=== PATIENT | male | born 1965 | race Caucasian/White ===

== ENCOUNTER → 2018-04-09 | Outpatient (CLI) | payer BC ==
[~2018-04-09] MED LIST: ASP81CT; CLIN300C3 PO; FRSM40T; KCL20TCR; LISI5TAB14; LSNP20T; MAGN400T6 PO; METO25TA2; METOPROLOL TARTRATE; MTP25TSR PO; NIAC1000; NIAC1TBM5; OMEP-10; SIMV40TA2; SIMV40TA2 PO; SMV20T; VIT1TABL57
== END ==
LOC: CARD 11:58
PROVIDERS: ATTEND Internal Medicine
DX: I10 Essential (primary) hypertension (principal); I25.10 Atherosclerotic heart disease of native coronary artery without angina pectoris; R07.9 Chest pain, unspecified
CPT/HCPCS: 93306

== ENCOUNTER 2019-10-06 05:34 | Outpatient (CLI) | payer BC ==
[~2019-10-06] VITALS: Ht 182 cm; Wt 120.0 kg
[2019-10-06] MEDS ORDERED: LISI2.5T PO (14:07)
[2019-10-06] MEDS ORDERED: CHOL500050 PO (14:07)
[2019-10-06] MEDS ORDERED: ASPI-586 PO (14:07)
[2019-10-06] MEDS ORDERED: MTP25TSR PO (14:07)
[2019-10-06] MEDS ORDERED: SIMV80TA21 PO (14:07)
[2019-10-06] MEDS ORDERED: NIAC500T24 PO (14:07)
[2019-10-06] MEDS ORDERED: OMEP40CA27 PO (14:10)
== END 2019-10-06 14:12 | disposition home or self-care (01) ==
LOC: PREOP 05:34
PROVIDERS: ATTEND Internal Medicine
DX: Z01.818 Encounter for other preprocedural examination (principal)

== ENCOUNTER 2020-06-01 07:05 | Observation (INO) | payer BC ==
[~2020-06-01] VITALS: Ht 182.8 cm; Wt 120.8 kg
[2020-06-01] VITALS (10 sets, daily range): BP systolic 120–151; BP diastolic 74–97
[~2020-06-01 07:05] MED LIST changes: +ASPI-586 PO; +CHOL500050 PO; +LISI2.5T PO; +NIAC500T24 PO; +OMEP40CA27 PO; +SIMV80TA21 PO
--- OUTSIDE RECORDS SUMMARY | 2020-06-01 07:10 | XMS REPORT ---
Author Author Porfirio Hussein Doctor Organization [facility] Address Unknown Phone Unavailable Care Team Providers Care Toe Laster Name Role Phone Migration, Doctor Unavailable Unavailable PROBLEMS Type Condition ICD9-CM Code MWR45-TH Code Onset Dates Condition S tatus SNOMED Code Problem Need for prophylactic vaccination and inoculation, Influen za V04.81 Active 541636639 Problem Pain in joint, lower leg 719.46 Activ e 589662066 Problem Screening examination for pulmonary tuberculosis V74.1 Active 474081910 Problem Health examination of defined subpopulation V70.5 Active 141840090 ALLERGIES No Information ENCOUNTERS Encounter Location Date Diagnosis [address] [id number] [id number] Jul, Encounter for immunization Z23 [facility] [address] [facility] [id number] [address] [place] [phone] Jul, Encounter for immunization Z 23 [facility] [address] [facility] [id number] [address] [place] [phone] February, Encounter for immunization Z 23 [facility] [address] [facility] [id number] [address] [place] [phone] Dec, Bronchitis J40 [facility] [address] [facility] [id number] [address] [place] [phone] Jul, Encounter for immunization Z 23 [facility] [address] [facility] [id number] [address] [place] [phone] Aug, Encounter for immunization Z 23 [facility] [address] [facility] [id number] [address] [place] [phone] 04 Aug, 2015 Encounter for immunization Z 23 [facility] [address] [facility] [id number] [address] [place] [phone] 14 Jan, 2015 [facility] [address] [facility] [id number] [address] [place] [phone] Jan, zzCHJONO [facility] [address] [facility] [place] [address] Jul, [facility] [address] [id number] [address] [place] [phone] Jul, [facility] [address] [id number] [address] [place] [phone] Jul, [facility] [address] [id number] [address] [place] [phone] Jul, [facility] [address] [id number] [address] [place] [phone] Jun, [facility] [address] [id number] [address] [place] [phone] Jun, [facility] [address] [id number] [address] [place] [phone] Jun, [facility] [address] [id number] [address] [place] [phone] Jun, [facility] [address] [id number] [address] [place] [phone] Jan, [facility] [address] [id number] [address] [place] [phone] Jan, [facility] [address] [id number] [address] [place] [phone] Oct, [facility] [address] [id number] [address] [place] [phone] Oct, [facility] [address] [id number] [address] [place] [phone] Aug, IMMUNIZATIONS No Known Immunizations SOCIAL HISTORY Never Assessed REASON FOR VISIT PLAN OF CARE VITAL SIGNS MEDICATIONS Unknown Medications RESULTS No Results PROCEDURES Procedure Date Ordered Result Body Site TB INTRADERMAL TEST Nov 12, 2013 INSTRUCTIONS MEDICATIONS ADMINISTERED No Known Medications MEDICAL (GENERAL) HISTORY Type Description Date Surgical History open heart surgery 2007
--- OUTSIDE RECORDS SUMMARY | 2020-06-01 07:10 | XMS REPORT | Continuity of Care Document ---
Author Organization Unknown Address Unknown Phone Unavailable Allergies Active Description Code Type Severity Reaction Onset Reported/Identified Relationship to Patient Clinical Status Yes No Known Drug Allergies [id number] Drug Allergy Unknown N/A 10/10/2019 Medications There is no data. Problems Date Dx Coded Attending Type Code Diagnosis Diagnosed By 04/23/2009 KIMBERLEE SOLIZ DO 530.81 ESOPHAGEAL REFLUX 04/23/2009 KIMBERLEE SOLIZ DO 789.03 ABDOMINAL PAIN RIGHT LOWER QUADRANT 04/23/2009 ORAL POOL APRN R 530.81 ESOPHAGEAL REFLUX 04/23/2009 ORAL POOL APRN 789.03 ABDOMINAL PAIN RIGHT LOWER QUADRANT 04/23/2009 ARMANDO CUEVAS APRN 530.81 ESOPHAGEAL REFLUX 04/23/2009 ARMANDO CUEVAS APRN 789.03 ABDOMINAL PAIN RIGHT LOWER QUADRANT 04/23/2009 ARMANDO CUEVAS APRN 530.81 ESOPHAGEAL REFLUX 04/23/2009 ARMANDO CUEVAS APRN 789.03 ABDOMINAL PAIN RIGHT LOWER QUADRANT 04/23/2009 COURTNEY GARNER MD 530.8 1 ESOPHAGEAL REFLUX 04/23/2009 COURTNEY GARNER MD 789.0 3 ABDOMINAL PAIN RIGHT LOWER QUADRANT 11/12/2013 KIMBERLEE SOLIZ DO K V74.1 TB SCREENING 11/12/2013 ORAL POOL APRN R V74.1 TB SCREENING 11/12/2013 ARMANDO CUEVAS APRN V7 4.1 TB SCREENING 11/12/2013 ARMANDO CUEVAS APRN V7 4.1 TB SCREENING 11/12/2013 COURTNEY GARNER MD V74.1 TB SCREENING 01/28/2014 ORAL POOL APRN R V70.5 EXAM - PRE-EMPLOYMENT 01/28/2014 ARMANDO CUEVAS APRN V7 0.5 EXAM - PRE-EMPLOYMENT 01/28/2014 ARMANDO CUEVAS APRN V7 0.5 EXAM - PRE-EMPLOYMENT 01/28/2014 COURTNEY GARNER MD V70.5 EXAM - PRE-EMPLOYMENT 07/15/2014 ARMANDO CUEVAS APRN 719.46 PAIN KNEE 07/15/2014 ARMANDO CUEVAS APRN T 719.46 PAIN KNEE 07/15/2014 COURTNEY GARNER MD 719.4 6 PAIN KNEE 08/18/2014 COURTNEY GARNER MD V04.8 1 FLU SHOT 04/10/2018 JATINDER GUTIÉRREZ MD Ot I10 ESSENTIAL (PRIMARY) HYPERTENSION 04/10/2018 JATINDER GUTIÉRREZ MD Ot I25. 10 ATHSCL HEART DISEASE OF [place] CORONARY 04/10/2018 JATINDER GUTIÉRREZ MD Ot R07. 9 CHEST PAIN, UNSPECIFIED 04/26/2018 JATINDER GUTIÉRREZ MD Ot I10 ESSENTIAL (PRIMARY) HYPERTENSION 04/26/2018 JATINDER GUTIÉRREZ MD Ot I25. 10 ATHSCL HEART DISEASE OF [place] CORONARY 04/26/2018 JATINDER GUTIÉRREZ MD Ot R07. 9 CHEST PAIN, UNSPECIFIED 05/16/2018 JATINDER GUTIÉRREZ MD Ot I10 ESSENTIAL (PRIMARY) HYPERTENSION 05/16/2018 JATINDER GUTIÉRREZ MD Ot I25. 10 ATHSCL HEART DISEASE OF [place] CORONARY 05/16/2018 JATINDER GUTIÉRREZ MD Ot R07. 9 CHEST PAIN, UNSPECIFIED 08/07/2018 JATINDER GUTIÉRREZ MD Ot I10 ESSENTIAL (PRIMARY) HYPERTENSION 08/07/2018 JATINDER GUTIÉRREZ MD Ot I25. 10 ATHSCL HEART DISEASE OF [place] CORONARY 08/07/2018 JATINDER GUTIÉRREZ MD Ot R07. 9 CHEST PAIN, UNSPECIFIED 08/12/2018 JATINDER GUTIÉRREZ MD Ot I10 ESSENTIAL (PRIMARY) HYPERTENSION 08/12/2018 JATINDER GUTIÉRREZ MD Ot I25. 10 ATHSCL HEART DISEASE OF [place] CORONARY 08/12/2018 JATINDER GUTIÉRREZ MD Ot R07. 9 CHEST PAIN, UNSPECIFIED 10/06/2019 JATINDER GUTIÉRREZ MD Ot Z01.818 ENCOUNTER FOR OTHER PREPROCEDURAL EXAMIN 10/07/2019 JATINDER GUTIÉRREZ MD Ot Z01.818 ENCOUNTER FOR OTHER PREPROCEDURAL EXAMIN 10/16/2019 JATINDER GUTIÉRREZ MD Ot E78. 5 HYPERLIPIDEMIA, UNSPECIFIED 10/16/2019 JATINDER GUTIÉRREZ MD Ot I87. 2 VENOUS INSUFFICIENCY (CHRONIC) (PERIPHER 10/16/2019 JATINDER GUTIÉRREZ MD Ot K63. 5 POLYP OF COLON 10/16/2019 JATINDER GUTIÉRREZ MD Ot Z12. 11 ENCOUNTER FOR SCREENING FOR MALIGNANT NE 10/16/2019 JATINDER GUTIÉRREZ MD Ot Z79.899 OTHER ALF (CURRENT) DRUG THERAPY 10/16/2019 JATINDER GUTIÉRREZ MD Ot Z82. 62 FAMILY HISTORY OF OSTEOPOROSIS 10/16/2019 JATINDER GUTIÉRREZ MD Ot Z95. 1 PRESENCE OF AORTOCORONARY BYPASS GRAFT 10/30/2019 JATINDER GUTIÉRREZ MD Ot E78. 5 HYPERLIPIDEMIA, UNSPECIFIED 10/30/2019 JATINDER GUTIÉRREZ MD Ot I25. 10 ATHSCL HEART DISEASE OF [place] CORONARY 10/30/2019 JATINDER GUTIÉRREZ MD Ot I87. 2 VENOUS INSUFFICIENCY (CHRONIC) (PERIPHER 10/30/2019 JATINDER GUTIÉRREZ MD Ot K62. 1 RECTAL POLYP 10/30/2019 JATINDER GUTIÉRREZ MD Ot M19. 90 UNSPECIFIED OSTEOARTHRITIS, UNSPECIFIED 10/30/2019 JATINDER GUTIÉRREZ MD Ot Z12. 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 61 FAMILY HISTORY OF ARTHRITIS 10/30/2019 JATINDER GUTIÉRREZ MD Ot Z87.891 PERSONAL HISTORY OF NICOTINE DEPENDENCE 10/30/2019 JATINDER GUTIÉRREZ MD Ot Z95. 1 PRESENCE OF AORTOCORONARY BYPASS GRAFT Procedures Code [place] [address] TB T EST INTRADERMAL 11/12/2013 88337 XRAY KNEE LEFT, 1 OR 2 VIEWS 07/15/2014 39304 XRAY KNEE LEFT, 1 OR 2 VIEWS 07/17/2014 Results There is no data. Encounters ACCT No. Visit Date/Time Discharge Status Pt. Type Provider Facility Loc./Unit Complaint [id number] 08/18/2014 13:23:00 08/18/2014 23:59: 59 CLS Outpatient PATSY ADAMS, COURTNEY Jaramillo [id number] 07/17/2014 16:12:00 07/17/2014 23:59: 59 CLS Outpatient ARMANDO CUEVAS APRN [id number] 07/15/2014 16:59:00 07/15/2014 23:59: 59 CLS Outpatient ARMANDO CUEVAS APRN [id number] 01/28/2014 08:26:00 01/28/2014 23:59: 59 CLS Outpatient ORAL POOL APRN [id number] 11/12/2013 07:54:00 11/12/2013 23:59: 59 CLS Outpatient KIMBERLEE SOLIZ DO [id number] 10/10/2019 07:54:00 019 10:50:00 DIS Outpatient JATINDER GUTIÉRREZ MD [facility] ENDO SCREENING [id number] 10/06/2019 05:34:00 14:12:00 DIS Outpatient JATINDER GUTIÉRREZ MD [facility] PREOP COLONOSCOPY [id number] 04/09/2018 11:58:00 23:59:59 CLS Outpatient JATINDER GUTIÉRREZ MD [facility] CARD HTN,CHEST PAIN [id number] 06/01/2020 07:06:[address] Emergency GRACIE ZAVALA MD [facility] ER CHEST PAIN [id number] 04/24/2020 07:55:00 04/24/2020 23:59:5 9 CLS Outpatient [facility]
--- OUTSIDE RECORDS SUMMARY | 2020-06-01 07:10 | XMS REPORT ---
Author Author Porfirio Dobbs Organization [facility] Address [address] [place] [address] Care Team Providers Care Coater Operator Insulation Board Name Role Phone ORAL Dobbs Unavailable PROBLEMS Type Condition ICD9-CM Code IOV29-AG Code Onset Dates Condition S tatus SNOMED Code Problem Need for prophylactic vaccination and inoculation, Influen za V04.81 Active 133173516 Problem Pain in joint, lower leg 719.46 Activ e 644838089 Problem Screening examination for pulmonary tuberculosis V74.1 Active 038313463 Problem Health examination of defined subpopulation V70.5 Active 417723689 ALLERGIES No Information ENCOUNTERS Encounter Location Date Diagnosis [address] [id number] [id number] Jul, Encounter for immunization 23 [facility] [id number] [place] [address] Jul, Encounter for immunization Z23 [facility] [address] [facility] [id number] [address] [place] [phone] February, Encounter for immunization Z 23 [facility] IN [facility] [address] [facility] [id number] [address] [place] [phone] Dec, Bronchitis J40 [facility] [address] [facility] [place] [address] Jul, Encounter for immunization 23 [facility] [id number] [place] [address] Aug, Encounter for immunization Z23 [facility] [address] [phone] 04 Aug, 2015 Encounter for immunization 23 [facility] [address] [address] Jan, [facility] [id number] [place] [address] Jan, Gil KO[facility] [address] [facility] [place] [address] Jul, [facility] [id number] [place] [address] Jul, [facility] [id number] [place] [address] Jul, [facility] [id number] [place] [address] Jul, [facility] [address] [phone] Jun, [facility] [id number] [place] [address] Jun, [facility] [id number] [place] [address] Jun, [facility] [id number] [place] [address] Jun, [facility] [id number] [place] [address] Jan, [facility] [id number] [place] [address] Jan, [facility] [id number] [place] [address] Oct, [facility] [id number] [place] [address] Oct, [facility] [id number] [place] [address] Aug, IMMUNIZATIONS No Known Immunizations SOCIAL HISTORY Never Assessed REASON FOR VISIT PLAN OF CARE VITAL SIGNS Height 72 in 2014-01-28 Weight 248.31 lbs 2014-01-28 Temperature 97.4 degrees Fahrenheit 2014-01-28 Heart Rate 74 bpm 2014-01-28 Respiratory Rate 18 2014-01-28 Blood pressure systolic 126 mmHg 2014-01-28 Blood pressure diastolic 76 mmHg 2014-01-28 MEDICATIONS Unknown Medications RESULTS No Results PROCEDURES No Known procedures INSTRUCTIONS MEDICATIONS ADMINISTERED No Known Medications MEDICAL (GENERAL) HISTORY Type Description Date Surgical History open heart surgery 2007
[2020-06-01] MEDS ORDERED: NITROGLYCERIN 0.4 MG SL TABS BTL 25'S SL ONE (07:14)
[2020-06-01] MEDS ORDERED: ASPIRIN 81 MG CHEW (CHILDREN'S ASA) ONE (07:15)
--- NOTE | 2020-06-01 07:16 | ED Chest Pain ---
General Stated Complaint: CHEST PAIN Source: patient Exam Limitations: no limitations History of Present Illness Date Seen by Provider: Jun 01, 2020 Time Seen by Provider: 07:09 Initial Comments Them patient arrives the ER by private conveyance with chief complaint that about 6:00, one hour prior to arrival he began to experience pain in his left chest occasionally radiating towards his right chest. He rates the pain early as severe, sharp and now about a 3 out of 10 while at rest. He is not having any nausea sweats fever chills cough. 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 He is followed by Dr. Phil Ruiz. He had a colonoscopy in the last 6 months that was normal. His had no other abdominal or chest surgeries. He has not taken any nitroglycerin this morning because he started feeling a little dizzy and lightheaded like he might pass out. No palpitations or racing heart rate. He is not on blood thinners. He does take aspirin daily but has not taken it this morning. He quit smoking 2007. He only rarely drinks and does not use recreational drugs. He has high blood pressure an d hyperlipidemia without diabetes. Echocardiogram by Dr. Villarreal 2008: EF 55% with some mild mitral and tricuspid regurgitation. No cardiac catheterization since 2007. Allergies and Home Medications Allergies Coded Allergies: No Known Drug Allergies (Verified , 10/10/19) Home Medications Aspirin 81 Mg Tablet., 81 MG PO DAILY, (Reported) Cholecalciferol (Vitamin D3) 5,000 Unit Capsule, 5,000 UNIT PO DAILY, (Reported) Lisinopril 2.5 Mg Tablet, 2.5 MG PO DAILY, (Reported) Metoprolol Succinate 25 Mg Tab.er.24h, 25 MG PO BID, (Reported) Niacinamide 500 Mg Tablet, 500 MG PO DAILY, (Reported) Omeprazole 40 Mg Capsule.dr, 40 MG PO DAILY PRN for HEARTBURN, (Reported) Simvastatin 80 Mg Tablet, 40 MG PO DAILY, (Reported) Patient Home Medication List Home Medication List Reviewed: Yes Review of Systems Review of Systems Constitutional: No chills, No diaphoresis EENTM: No Blurred Vision, No Double Vision Respiratory: Denies Cough, Denies Shortness of Air Cardiovascular: Chest Pain; Denies Edema Gastrointestinal: Denies Constipated, Denies Diarrhea, Denies Nausea Genitourinary: Denies Burning, Denies Discharge Musculoskeletal: No back pain, No joint pain Skin: No pruritus, No rash Psychiatric/Neurological: Denies Headache, Denies Numbness All Other Systems Reviewed Negative Unless Noted: Yes Past Mjlfman-Rkwtes-Lyvqwr Hx Patient Social History Alcohol Use: Rarely Uses Recreational Drug Use: No Smoking Status: Former Smoker Former Smoker, Quit: Oct 06, 2008 2nd Hand Smoke Exposure: Yes Recent Foreign Travel: No Contact w/Someone Who Travel: No Recent Hopitalizations: Yes (FEBRUARY 2019-) Immunizations Up To Date Date of Influenza Vaccine: Aug 04, 2019 Seasonal Allergies Seasonal Allergies: No Past Medical History Surgeries: Yes (LEFT FINGERS, BYPASS) Respiratory: No Cardiac: Yes (CABG March 2008) Coronary Artery Disease, High Cholesterol, Hypertension Neurological: No Reproductive Disorders: No Sexually Transmitted Disease: No HIV/AIDS: No Genitourinary: No Gastrointestinal: Yes Gastroesophageal Reflux Musculoskeletal: Yes Arthritis Endocrine: No HEENT: Yes (DENTURES) Loss of Vision: Denies Hearing Impairment: Denies Psychosocial: No Integumentary: No Blood Disorders: No Adverse Reaction/Blood Tranf: No (N/A) Physical Exam Vital Signs Vital Signs - First Documented 06/01/20 07:07 Temp 36.9 Pulse 72 Resp 18 B/P (MAP) 168/92 (117) Pulse Ox 97 O2 Delivery Room Air Capillary Refill : Height, Weight, BMI Height: '" Weight: lbs. oz. kg; 33.92 BMI Method:Stated General Appearance: WD/WN, Anxious, Mild Distress HEENT: PERRL/EOMI, Pharynx Normal, Moist Mucous Membranes Neck: Normal Inspection, Non Tender Respiratory: Chest Non Tender, Lungs Clear, Normal Breath Sounds, No Accessory Muscle Use, No Respiratory Distress Cardiovascular: Regular Rate, Rhythm, No Edema, Normal Peripheral Pulses Gastrointestinal: Normal Bowel Sounds, Non Tender, Soft Extremity: Normal Capillary Refill, Normal Inspection, No Pedal Edema Neurologic/Psychiatric: Alert, Oriented x3, No Motor/Sensory Deficits Skin: Normal Color, Warm/Dry Progress/Results/Core Measures Results/Orders Lab Results Laboratory Tests Test 06/01/20 07:15 Range/Units White Blood Count 5.4 4.3-11.0 10^3/uL Red Blood Count 4.77 4.35-5.85 10^6/uL Hemoglobin 13.9 13.3-17.7 G/DL Hematocrit 42 40-54 % Mean Corpuscular Volume 87 80-99 FL Mean Corpuscular Hemoglobin 29 25-34 PG Mean Corpuscular Hemoglobin Concent 33 32-36 G/DL Red Cell Distribution Width 13.2 10.0-14.5 % Platelet Count 186 130-400 10^3/uL Mean Platelet Volume 9.7 7.4-10.4 FL Neutrophils (%) (Auto) 55 42-75 % Lymphocytes (%) (Auto) 34 12-44 % Monocytes (%) (Auto) 9 0-12 % Eosinophils (%) (Auto) 2 0-10 % Basophils (%) (Auto) 0 0-10 % Neutrophils # (Auto) 3.0 1.8-7.8 X 10^3 Lymphocytes # (Auto) 1.8 1.0-4.0 X 10^3 Monocytes # (Auto) 0.5 0.0-1.0 X 10^3 Eosinophils # (Auto) 0.1 0.0-0.3 10^3/uL Basophils # (Auto) 0.0 0.0-0.1 10^3/uL Prothrombin Time 12.8 12.2-14.7 SEC INR Comment 0.9 0.8-1.4 Activated Partial Thromboplast Time 27 24-35 SEC Sodium Level 140 135-145 MMOL/L Potassium Level 4.0 3.6-5.0 MMOL/L Chloride Level 108 H 98-107 MMOL/L Carbon Dioxide Level 22 21-32 MMOL/L Anion Gap 10 5-14 MMOL/L Blood Urea Nitrogen 17 7-18 MG/DL Creatinine 0.86 0.60-1.30 MG/DL Estimat Glomerular Filtration Rate > 60 BUN/Creatinine Ratio 20 Glucose Level 112 H 70-105 MG/DL Calcium Level 9.1 8.5-10.1 MG/DL Corrected Calcium 9.0 8.5-10.1 MG/DL Magnesium Level 1.8 1.6-2.4 MG/DL Total Bilirubin 0.7 0.1-1.0 MG/DL Aspartate Amino Transf (AST/SGOT) 22 5-34 U/L Alanine Aminotransferase (ALT/SGPT) 22 0-55 U/L Alkaline Phosphatase 114 40-136 U/L Myoglobin 64.6 10.0-92.0 NG/ML Troponin I < 0.028 <0.028 NG/ML Total Protein 7.1 6.4-8.2 GM/DL Albumin 4.1 3.2-4.5 GM/DL Lipase 17 8-78 U/L My Orders Orders - GRACIE ZAVALA Cbc With Automated Diff (06/01/20 07:16) Magnesium (06/01/20 07:16) Chest 1 View, Ap/Pa Only (06/01/20 07:16) Ekg Tracing (06/01/20 07:16) Comprehensive Metabolic Panel (06/01/20 07:16) Myoglobin Serum (06/01/20 07:16) Protime With Inr (06/01/20 07:16) Partial Thromboplastin Time (06/01/20 07:16) O2 (06/01/20 07:16) Monitor-Rhythm Ecg Trace Only (06/01/20 07:16) Lipid Panel (06/02/20 06:00) Ed Iv/Invasive Line Start (06/01/20 07:16) Lipase (06/01/20 07:16) Troponin I (06/01/20 07:16) Nitroglycerin 0.4 Mg Btl 25's (Nitrostat (06/01/20 07:30) Aspirin Chewable Tablet (Baby Aspirin Ch (06/01/20 07:30) Nitroglycerin 0.4 Mg Btl 25's (Nitrostat (06/01/20 07:14) Aspirin Chewable Tablet (Baby Aspirin Ch (06/01/20 07:15) Metoprolol Succinate (Xl) Tab (Toprol Xl (06/01/20 08:00) Clopidogrel Tablet (Plavix Tablet) (06/01/20 08:00) Medications Given in ED Current Medications Medications Dose Ordered Sig/Eveline Route Start Time Stop Time Status Last Admin Dose Admin Aspirin 324 mg ONCE ONCE PO 06/01/20 07:30 06/01/20 07:31 DC 06/01/20 07:19 324 MG Nitroglycerin 0.4 mg UD PRN SL 06/01/20 07:30 06/01/20 07:21 0.4 MG Vital Signs/I&O 06/01/20 06/01/20 07:07 07:43 Temp 36.9 Pulse 72 62 Resp 18 18 B/P (MAP) 168/92 (117) 120/74 (89) Pulse Ox 97 96 O2 Delivery Room Air Room Air Progress Progress Note #1: Time: 07:25 Progress Note We will give him 324 mg of aspirin to chew and swallow as well as trial a dose of nitroglycerin. His blood pressure is significant at this point and he has no evidence of an inferior ST changes on EKG. Progress Note #2: Time: 07:39 Progress Note After single dose of nitroglycerin the patient is not having any chest pain or symptoms of this time. If he had a normal troponin his heart score would still be 5 points. We have discussed observation stay and he is in agreement with this plan. Initial ECG Impression Date: Jun 01, 2020 Initial ECG Impression Time: 07:12 Initial ECG Rate: 71 Initial ECG Rhythm: Normal Sinus Initial ECG Intervals: Normal Initial ECG Impression: Normal Initial ECG Comparisson: Unchanged Comment Normal sinus rhythm without clinically relevant ST changes. Diagnostic Imaging Diagonstic Imaging: Xray Plain Films/CT/US/NM/MRI: chest Comments No acute cardiopulmonary process on one view chest x-ray. [facility] [place] [place] NAME: [facility] REC#: [id number] PT STATUS: REG ER : 1965 PHYSICIAN: GRACIE ZAVALA MD ADMIT DATE: 06/01/20/ER Draft Date of Exam:06/01/20 CHEST 1 VIEW, AP/PA ONLY INDICATION: Chest pain, sudden onset this morning. TECHNIQUE: Single view chest 7:29 AM. CORRELATION STUDY: 11/03/2011 FINDINGS: Poststernotomy changes. Heart size enlarged. Vasculature overall within normal limits. No definitive infiltrate. Lung hawk slightly hyperinflated. IMPRESSION: 1. Negative for acute abnormality of the chest. Post sternotomy changes with borderline cardiac enlargement. Dictated on workstation # [id number] Dict: 06/01/20 0741 Trans: 06/01/20 [id number] Interpreted by: CAMILA ACKERMAN DO Electronically signed by: Reviewed: Reviewed by Me Consults : Consulting Physician: BENOIT VILLARREAL MD FACP FACC CCDS Departure Communication (Admissions) Time/Spoke to Admitting Phy: 07:55 Discussed the case with Dr. Olson and he agrees to observe the patient in the cardiac stepdown with consultation to cardiology. Time/Spoke to Consulting Phy: 07:50 Discussed the case with Dr. Villarreal, cardiology and he agrees to consult on the patient. He would like the patient kept nothing by mouth until he sees them. He would like 25 mg metoprolol succinate now and daily as well as Plavix 300 mg now and then 75 mg daily. Impression Primary Impression: Unstable angina Disposition: ADMITTED INPATIENT Condition: Stable Admissions Decision to Admit Reason: Admit from ER (General) Decision to Admit/Date: Jun 01, 2020 Time/Decision to Admit Time: 07:45 Departure-Patient Inst. Referrals: JATINDER RUIZ MD (PCP/Family) Primary Care Physician GRACIE ZAVALA Jun 01, 2020 07:16
[2020-06-01 07:25] LABS: BASOPHILS % (AUTO) 0 % (0-10); EOSINOPHILS # (AUTO) 0.1 10^3/uL (0.0-0.3); EOSINOPHILS % (AUTO) 2 % (0-10); HEMATOCRIT 42 % (40-54); HEMOGLOBIN 13.9 G/DL (13.3-17.7); LYMPHOCYTES # (AUTO) 1.8 X 10^3 (1.0-4.0); LYMPHOCYTES % (AUTO) 34 % (12-44); MEAN CORPUSCULAR HEMOGLOBIN 29 PG (25-34); MEAN CORPUSCULAR HGB CONC 33 G/DL (32-36); MEAN CORPUSCULAR VOLUME 87 FL (80-99); MEAN PLATELET VOLUME 9.7 FL (7.4-10.4); MONOCYTES # (AUTO) 0.5 X 10^3 (0.0-1.0); MONOCYTES % (AUTO) 9 % (0-12); NEUTROPHILS % (AUTO) 55 % (42-75); PLATELET COUNT 186 10^3/uL (130-400); RED CELL DISTRIBUTION WIDTH 13.2 % (10.0-14.5); WHITE BLOOD COUNT 5.4 10^3/uL (4.3-11.0)
[2020-06-01] MEDS ORDERED: ASPIRIN 81 MG CHEW (CHILDREN'S ASA) PO ONE (07:30)
[2020-06-01] MEDS ORDERED: NITROGLYCERIN 0.4 MG SL TABS BTL 25'S SL PRN ×2 (07:30→09:15)
[2020-06-01 07:32] LABS: INR 0.9 (0.8-1.4); PROTHROMBIN TIME PATIENT 12.8 SEC (12.2-14.7)
--- NOTE | 2020-06-01 07:34 | NUR ---
TO ROOM PATIENT REPORTS THAT PAIN GONE TALKING ON PHONE TO .
[2020-06-01 07:41] LABS: ALANINE AMINOTRANSFERASE 22 U/L (0-55); ALBUMIN 4.1 GM/DL (3.2-4.5); ALKALINE PHOSPHATASE 114 U/L (40-136); BILIRUBIN,TOTAL 0.7 MG/DL (0.1-1.0); BUN/CREATININE RATIO 20; CALCIUM 9.1 MG/DL (8.5-10.1); CARBON DIOXIDE 22 MMOL/L (21-32); CHLORIDE 108 MMOL/L (98-107); CREATININE SERUM 0.86 MG/DL (0.60-1.30); GFR ESTIMATED > 60; GLUCOSE 112 MG/DL (70-105); LIPASE 17 U/L (8-78); MAGNESIUM 1.8 MG/DL (1.6-2.4); SODIUM 140 MMOL/L (135-145); TOTAL PROTEIN 7.1 GM/DL (6.4-8.2)
--- NOTE | 2020-06-01 07:45 | Diagnostic Imaging Report ---
INDICATION: Chest pain, sudden onset this morning. TECHNIQUE: Single view chest 7:29 AM. CORRELATION STUDY: 11/03/2011 FINDINGS: Poststernotomy changes. Heart size enlarged. Vasculature overall within normal limits. No definitive infiltrate. Lung hawk slightly hyperinflated. IMPRESSION: 1. Negative for acute abnormality of the chest. Post sternotomy changes with borderline cardiac enlargement. Dictated by: Dictated on workstation # [id number]
[2020-06-01] MEDS ORDERED: CLOPIDOGREL 300 MG (PLAVIX) TABLET PO ONE (08:00)
--- NOTE | 2020-06-01 08:36 | NUR ---
VINICIO WYMAN JR admitted to room CU10-1, with an admitting diagnosis of Chest pain, on 06/01/20 from [place] via wheelchair, accompanied by staff.VINICIO WYMAN JR introduced to surroundings, call light, bed controls, phone, TV, temperature control, lights, meal times, smoking policy, visitor policy, side rail policy, bathrooms and showers. Patient Rights given to patient in the handbook. VINICIO WYMAN JR verbalizes understanding that [facility] is not responsible for the loss or damage to any personal effects or valuables that are kept in the patients posession during their hospitalization. The following Patient Care Plans were discussed with the pt: Discharge Planning. VINICIO WYMAN JR verbalizes understanding of Interdisciplinary Patient Education. Patient and/or family were informed about the Rapid Response Team and its purpose.
[2020-06-01] MEDS ORDERED: ONDANSETRON 4 MG/2 ML (SDV) Z0FRAN IVP PRN (09:15)
[2020-06-01] MEDS ORDERED: morphine INJ 4 MG/ML 1 ML (VIAL/SYRINGE) IV PRN ×2 (09:15→09:45)
[2020-06-01] MEDS ORDERED: CATHETER FLUSH 10 ML SYR IV PRN (09:30)
[2020-06-01] MEDS ORDERED: ACETAMINOPHEN 500 MG TAB (TYLENOL) PO PRN (09:30)
[2020-06-01] MEDS ORDERED: ANTACID SUSP 30 ML UDC (MYLANTA) PO PRN (09:30)
[2020-06-01] MEDS ORDERED: ASPI-983 PO (10:22)
[2020-06-01] MEDS ORDERED: ATOR80TA76 PO (10:22)
[2020-06-01] MEDS ORDERED: METO-333 PO (10:22)
[2020-06-01] MEDS ORDERED: CHOL100045 PO (10:22)
[2020-06-01] MEDS ORDERED: OMEP20TA7 PO (10:22)
--- NOTE | 2020-06-01 10:56 | NUR ---
SPOKE WITH THE PT AND WENT THRU THE EXT MED HISTORY TO COMPLETE THE MED REC PT WAS ABLE TO LIST HIS MEDS WELL WHEN/HOW HE TAKES THEM- HIS INFORMATION MATCHED THE EXT MED HISTORY OTC MEDS: VIT D 1 BID OMEPRAZOLE PRN ASPIRIN 81 1 HS NIACIN 2 HS
--- NOTE | 2020-06-01 11:14 | Consultation-Cardiology ---
HPI-Cardiology Cardiology Consultation: Date of Consultation 06/01/20 Time Seen by a Provider: 10:30 Date of Admission 06-01-2020 Attending Physician Kaley Olson MD Admitting Physician Sunil Ruiz MD Consulting Physician Samantha Villarreal MD HPI: Chief Complaint: Chest pain Mr. Bradford is a 55 year old male admitted to ICU 10 from the ED. He reports he woke up this morning and was getting ready for work. He states he felt, weak, dizzy and disoriented. He reports he then began to have left sided chest pressure with occ radiation across his chest. He reports the discomfort jasen ined constant. He states he would sit down and the dizziness would improve, but as soon as he would get up to do any activity the dizziness and weakness would return. He denies any diaphoresis. He denies any palpitations. He states the the discomfort lasted until he received one nitro sublingual and ASA in the ED. The discomfort gradually resolved along with the dizziness and weakness. He has had no further episodes. He denies any LE swelling. He denies any syncope or near syncope. He denies any fever or chills. Review of Systems-Cardiology Review of Systems Constitutional: No chills, No fever; malaise Eyes: No vision change Ears/Nose/Throat: No epistaxis, No recent hearing loss Respiratory: As described under HPI Cardiovascular: As described under HPI Gastrointestinal: No constipation, No diarrhea; nausea; No vomiting Genitourinary: No dysuria, No hematuria Musculoskeletal: no symptoms reported Skin: No rash on exposed areas, No ulcerations on exposed areas Psychiatric/Neurological: No anxiety, No depression, No seizure, No focal weakness, No syncope Hematologic: No bleeding abnormalities All Other Systems Reviewed Negative Unless Noted: Yes NSS-Cwqlvq-Mxiogh Hx Patient Social History Alcohol Use: Rarely Uses Recreational Drug Use: No Smoking Status: Former Smoker 2nd Hand Smoke Exposure: Yes Recent Foreign Travel: No Recent Infectious Disease Expo: No Hospitalization with Isolation: Denies Immunizations Up To Date Date of Influenza Vaccine: Aug 04, 2019 Past Medical History PMH As described under Assessment. Family Medical History Family Medical History: No reported family h/o CAD. Allergies and Home Medications Allergies Coded Allergies: No Known Drug Allergies (Verified , 10/10/19) Home Medications Aspirin 81 Mg Tablet.dr, 81 MG PO HS, (Reported) Atorvastatin Calcium 80 Mg Tablet, 80 MG PO HS, (Reported) Cholecalciferol (Vitamin D3) 25 Mcg Tablet, 25 MCG PO BID, (Reported) Lisinopril 2.5 Mg Tablet, 2.5 MG PO DAILY, (Reported) Metoprolol Tartrate 25 Mg Tablet, 25 MG PO BID, (Reported) Niacinamide 500 Mg Tablet, 1,000 MG PO HS, (Reported) TAKES 2 (500MG) TABS Omeprazole 20 Mg Tablet.dr, 20 MG PO DAILY PRN for HEARTBURN, (Reported) Patient Home Medication List Home Medication List Reviewed: Yes Physical Exam-Cardiology Physical Exam Vital Signs/I&O 06/02/20 06/02/20 06/02/20 06/02/20 00:05 00:05 01:00 04:35 Temp 36.5 Pulse 70 60 Resp 18 B/P (MAP) 126/70 (88) Pulse Ox 95 96 95 O2 Delivery Room Air Room Air Room Air 06/02/20 04:35 Temp 36.8 Pulse 62 Resp 16 B/P (MAP) 132/78 (96) Pulse Ox 95 O2 Delivery Room Air 06/02/20 00:00 Intake Total 945 ml Output Total 950 ml Balance -5 ml Capillary Refill : Less Than 3 Seconds Constitutional: AAO x 3, well-developed, well-nourished HEENT: PERRL, hearing is well preserved Neck: No carotid bruit; carotid pulses are 2 + bilaterally Respiratory: No accessory muscle use, No respiratory distress; chest expansion is symmetric, chest is bilaterally symmetric, lungs clear to auscultation Cardiovascular: regular rate-rhythm; No JVD; S1 and S2 Gastrointestinal: No tender; soft, round, audible bowel sounds Extremities: no lower extremity edema bilateral Neurologic/Psychiatric: grossly intact (moves all extremities) Skin: No rash on exposed areas, No ulcerations on exposed areas Data Review Labs Laboratory Tests 06/01/20 11:58: Troponin I < 0.028 06/01/20 19:00: Troponin I < 0.028 06/02/20 03:55: White Blood Count 5.8, Red Blood Count 4.77, Hemoglobin 14.0, Hematocrit 42, Mean Corpuscular Volume 87, Mean Corpuscular Hemoglobin 29, Mean Corpuscular Hemoglobin Concent 34, Red Cell Distribution Width 13.5, Platelet Count 183, Mean Platelet Volume 9.7, Neutrophils (%) (Auto) 52, Lymphocytes (%) (Auto) 34, Monocytes (%) (Auto) 11, Eosinophils (%) (Auto) 3, Basophils (%) (Auto) 0, Neutrophils # (Auto) 3.1, Lymphocytes # (Auto) 2.0, Monocytes # (Auto) 0.6, Eosinophils # (Auto) 0.2, Basophils # (Auto) 0.0, Sodium Level 141, Potassium Level 4.3, Chloride Level 108H, Carbon Dioxide Level 20L, Anion Gap 13, Blood Urea Nitrogen 15, Creatinine 0.83, Estimat Glomerular Filtration Rate > 60, BUN/Creatinine Ratio 18, Glucose Level 104, Calcium Level 9.1, Corrected Calcium 9.3, Total Bilirubin 0.7, Aspartate Amino Transf (AST/SGOT) 21, Alanine Aminotransferase (ALT/SGPT) 20, Alkaline Phosphatase 94, Total Protein 6.5, Albumin 3.7, Triglycerides Level 105, Cholesterol Level 122, LDL Cholesterol Di rect 86, VLDL Cholesterol 21, HDL Cholesterol 22L Radiology NAME: GAROVINICIO [facility] REC#: [id number] PT STATUS: ADM Maria Del Rosario : 1965 PHYSICIAN: GRACIE ZAVALA MD ADMIT DATE: 06/01/20/ICU Signed Date of Exam:06/01/20 CHEST 1 VIEW, AP/PA ONLY INDICATION: Chest pain, sudden onset this morning. TECHNIQUE: Single view chest 7:29 AM. CORRELATION STUDY: 11/03/2011 FINDINGS: Poststernotomy changes. Heart size enlarged. Vasculature overall within normal limits. No definitive infiltrate. Lung hawk slightly hyperinflated. IMPRESSION: 1. Negative for acute abnormality of the chest. Post sternotomy changes with borderline cardiac enlargement. Dictated by: Dictated on workstation # [id number] Dict: 06/01/20 0741 Trans: 06/01/20 1050 [id number] Interpreted by: CAMILA ACKERMAN DO Electronically signed by: CAMILA ACKERMAN DO 06/01/20 1050 ECG Impression ECG Initial ECG Rhythm: Normal Sinus A/P-Cardiology Assessment/Admission Diagnosis Chest pain of undetermined etiology Coronary artery disease with a history of coronary artery bypass surgery in March [address] Marcos at [facility] in [place], [place]. Last catheterization was in August 2008 and it showed widely patent graft, including left internal mammary to first diagonal, radial artery to distal left anterior descending, saphenous vein to first obtuse marginal, saphenous vein to right coronary. There was approximately 50% stenosis at the site of insertion of the vein graft to the right coronary artery. Last myocardial perfusion imaging was by Dr. Emanuel on 01/12/10. The patient has small basal inferior infarction without ischemia, basal inferior hypokinesis,and left ventricular ejection fraction of 51%. Ischemic cardiomyopathy. Ejection fraction prior to coronary artery bypass surgery was 35 to 40%. Echocardiogram of March [address] Ruiz showed LVEF 50-55%. Mild to mod diastolic dysfunction. Mild MR. Mild to mod TR. PASP 30-35mmHg. Mild bilateral leg swelling, likely related to venous insufficiency, currently stable Hyperlipidemia being treated with statins and Niacin and being followed by Dr. Ruiz. Tobaccoism from which he is now refraining. Discussion and Recomendations Chest pain of undetermined etiology Echocardiogram to eval structure and function Continue ASA, statin and BB Monitor lab Further recs will be based on his hospital course We would like to thank medical services for this consult Clinical Quality Measures DVT/VTE Risk/Contraindication: Risk Factor Score Per Nursin RFS Level Per Nursing on Admit: 3=High NEIL WU Jun 01, 2020 11:14
[2020-06-01] MEDS ORDERED: REGADENOSON 0.4 MG/5 ML SYR (LEXISCAN) IV ONE (12:15)
--- NOTE | 2020-06-01 12:16 | Consultation-Cardiology ---
HPI-Cardiology Cardiology Consultation: Date of Consultation 06/01/20 Time Seen by a Provider: 11:55 Date of Admission Attending Physician Kaley Olson MD Admitting Physician Sunil Ruiz MD Consulting Physician BENOIT SANCHEZ MD, MA, FACP, FACC, FSCAI, CCDS HPI: Chief Complaint: CC: Chest pain HPI Mr. Bradford is a 55 year old male admitted to ICU 10 from the ED. He reports he woke up this morning and was getting ready for work. He states he felt, weak, dizzy and disoriented. He reports he then began to have left sided chest pressure with occ radiation across his chest. He reports the discomfort remained constant. He states he would sit down and the dizziness would improve, but as soon as he would get up to do any activity the dizziness and weakness would return. He denies any diaphoresis. He denies any palpitations. He states the the discomfort lasted until he received one nitro sublingual and ASA in the ED. The discomfort gradually resolved along with the dizziness and weakness. He has had no further episodes. He denies any LE swelling. He denies any syncope or near syncope. He denies any fever or chills. Review of Systems-Cardiology Review of Systems Constitutional: No chills, No fever; malaise Eyes: No vision change Ears/Nose/Throat: No epistaxis, No recent hearing loss Respiratory: As described under HPI Cardiovascular: As described under HPI Gastrointestinal: No constipation, No diarrhea; nausea; No vomiting Genitourinary: No dysuria, No hematuria Musculoskeletal: no symptoms reported Skin: No rash on exposed areas, No ulcerations on exposed areas Psychiatric/Neurological: No anxiety, No depression, No seizure, No focal weakness, No syncope Hematologic: No bleeding abnormalities All Other Systems Reviewed Negative Unless Noted: Yes FDI-Xqvpwr-Aolkil Hx Patient Social History Alcohol Use: Rarely Uses Recreational Drug Use: No Smoking Status: Former Smoker 2nd Hand Smoke Exposure: Yes Recent Foreign Travel: No Recent Infectious Disease Expo: No Hospitalization with Isolation: Denies Immunizations Up To Date Date of Influenza Vaccine: Aug 04, 2019 Past Medical History PMH As described under Assessment. Family Medical History Family Medical History: No reported family h/o CAD. Allergies and Home Medications Allergies Coded Allergies: No Known Drug Allergies (Verified , 10/10/19) Home Medications Aspirin 81 Mg Tablet.dr, 81 MG PO HS, (Reported) Atorvastatin Calcium 80 Mg Tablet, 80 MG PO HS, (Reported) Cholecalciferol (Vitamin D3) 25 Mcg Tablet, 25 MCG PO BID, (Reported) Lisinopril 2.5 Mg Tablet, 2.5 MG PO DAILY, (Reported) Metoprolol Tartrate 25 Mg Tablet, 25 MG PO BID, (Reported) Niacinamide 500 Mg Tablet, 1,000 MG PO HS, (Reported) TAKES 2 (500MG) TABS Omeprazole 20 Mg Tablet.dr, 20 MG PO DAILY PRN for HEARTBURN, (Reported) Patient Home Medication List Home Medication List Reviewed: Yes Physical Exam-Cardiology Physical Exam Vital Signs/I&O 06/01/20 06/01/20 06/01/20 06/01/20 07:07 07:43 08:14 08:23 Temp 36.9 36.6 Pulse 72 62 86 62 Resp 18 18 18 18 B/P (MAP) 168/92 (117) 120/74 (89) 131/71 141/84 Pulse Ox 97 96 95 97 O2 Delivery Room Air Room Air Room Air Room Air 06/01/20 06/01/20 06/01/20 06/01/20 08:30 08:37 08:47 09:00 Pulse 60 60 55 Resp 12 11 B/P (MAP) 141/77 (98) 138/87 (104) Pulse Ox 99 98 98 O2 Delivery Room Air Room Air Room Air 06/01/20 06/01/20 06/01/20 10:00 11:00 11:28 Pulse 56 54 Resp 13 13 B/P (MAP) 137/84 (101) 151/92 (111) Pulse Ox 99 99 95 O2 Delivery Room Air Room Air Room Air Capillary Refill : Less Than 3 Seconds Constitutional: AAO x 3, well-developed, well-nourished HEENT: PERRL, hearing is well preserved Neck: No carotid bruit; carotid pulses are 2 + bilaterally Respiratory: No accessory muscle use, No respiratory distress; chest expansion is symmetric, chest is bilaterally symmetric, lungs clear to auscultation Cardiovascular: regular rate-rhythm; No JVD; S1 and S2 Gastrointestinal: No tender; soft, round, audible bowel sounds Extremities: no lower extremity edema bilateral Neurologic/Psychiatric: grossly intact (moves all extremities) Skin: No rash on exposed areas, No ulcerations on exposed areas Data Review Labs Laboratory Tests 06/01/20 07:15: White Blood Count 5.4, Red Blood Count 4.77, Hemoglobin 13.9, Hematocrit 42, Mean Corpuscular Volume 87, Mean Corpuscular Hemoglobin 29, Mean Corpuscular Hemoglobin Concent 33, Red Cell Distribution Width 13.2, Platelet Count 186, Mean Platelet Volume 9.7, Neutrophils (%) (Auto) 55, Lymphocytes (%) (Auto) 34, Monocytes (%) (Auto) 9, Eosinophils (%) (Auto) 2, Basophils (%) (Auto) 0, Neutrophils # (Auto) 3.0, Lymphocytes # (Auto) 1.8, Monocytes # (Auto) 0.5, Eosinophils # (Auto) 0.1, Basophils # (Auto) 0.0, Prothrombin Time 12.8, INR Comment 0.9, Activated Partial Thromboplast Time 27, Sodium Level 140, Potassium Level 4.0, Chloride Level 108H, Carbon Dioxide Level 22, Anion Gap 10, Blood Urea Nitrogen 17, Creatinine 0.86, Estimat Glomerular Filtration Rate > 60, BUN/Creatinine Ratio 20, Glucose Level 112H, Calcium Level 9.1, Corrected Calcium 9.0, Magnesium Level 1.8, Total Bilirubin 0.7, Aspartate Amino Transf (AST/SGOT) 22, Alanine Aminotransferase (ALT/SGPT) 22, Alkaline Phosphatase 114, Myoglobin 64.6, Troponin I < 0.028, Total Protein 7.1, Albumin 4.1, Lipase 17 A/P-Cardiology Assessment/Admission Diagnosis Chest pain of undetermined etiology Coronary artery disease with a history of coronary artery bypass surgery in March [address] Marcos at [facility] in [place], [place]. Last catheterization was in August 2008 and it showed widely patent graft, including left internal mammary to first diagonal, radial artery to distal left anterior descending, saphenous vein to first obtuse marginal, saphenous vein to right coronary. There was approximately 50% stenosis at the site of insertion of the vein graft to the right coronary artery. Last myocardial perfusion imaging was by Dr. Emanuel on 01/12/10. The patient has small basal inferior infarction without ischemia, basal inferior hypokinesis,and left ventricular ejection fraction of 51%. Ischemic cardiomyopathy. Ejection fraction prior to coronary artery bypass surgery was 35 to 40%. Echocardiogram of March [address] Ruiz showed LVEF 50-55%. Mild to mod christopher stolic dysfunction. Mild MR. Mild to mod TR. PASP 30-35mmHg. Hyperlipidemia being treated with statins and Niacin and being followed by Dr. Ruiz. Former smoker of cigarettes. Discussion and Recomendations Continue ASA, statin and BB Echo If evidence of ACS, then cath If no evidence of ACS, then MPI Monitor labs Advised to continue to refrain from tobacco use We would like to thank Medical services for this consult Clinical Quality Measures DVT/VTE Risk/Contraindication: Risk Factor Score Per Nursin RFS Level Per Nursing on Admit: 3=High BENOIT SANCHEZ MD FACP FACC CCDS Jun 01, 2020 12:16
--- OUTSIDE RECORDS SUMMARY | 2020-06-01 12:26 | XMS REPORT | Continuity of Care Document ---
Author Organization Unknown Address Unknown Phone Unavailable Allergies Active Description Code Type Severity Reaction Onset Reported/Identified Relationship to Patient Clinical Status Yes No Known Drug Allergies [id number] Drug Allergy Unknown N/A 10/10/2019 Medications There [...] Ot I25. 10 ATHSCL HEART DISEASE OF [place] CORONARY 04/10/2018 JATINDER GUTIÉRREZ MD Ot R07. 9 CHEST PAIN, UNSPECIFIED 04/26/2018 JATINDER GUTIÉRREZ MD Ot I10 ESSENTIAL (PRIMARY) HYPERTENSION 04/26/2018 JATINDER GUTIÉRREZ MD Ot I25. 10 ATHSCL HEART DISEASE OF [place] CORONARY 04/26/2018 JATINDER GUTIÉRREZ MD Ot R07. 9 CHEST PAIN, UNSPECIFIED 05/16/2018 JATINDER GUTIÉRREZ MD Ot I10 ESSENTIAL (PRIMARY) HYPERTENSION 05/16/2018 JATINDER GUTIÉRREZ MD Ot I25. 10 ATHSCL HEART DISEASE OF [place] CORONARY 05/16/2018 JATINDER GUTIÉRREZ MD Ot R07. 9 CHEST PAIN, UNSPECIFIED 08/07/2018 JATINDER GUTIÉRREZ MD Ot I10 ESSENTIAL (PRIMARY) HYPERTENSION 08/07/2018 JATINDER GUTIÉRREZ MD Ot I25. 10 ATHSCL HEART DISEASE OF [place] CORONARY 08/07/2018 JATINDER GUTIÉRREZ MD Ot R07. 9 CHEST PAIN, UNSPECIFIED 08/12/2018 JATINDER GUTIÉRREZ MD Ot I10 ESSENTIAL (PRIMARY) HYPERTENSION 08/12/2018 JATINDER GUTIÉRREZ MD Ot I25. 10 ATHSCL HEART DISEASE OF [place] CORONARY 08/12/2018 JATINDER UGTIÉRREZ MD Ot R07. 9 CHEST PAIN, UNSPECIFIED 10/06/2019 JATINDER GUTIÉRRZE MD Ot Z01.818 ENCOUNTER FOR OTHER PREPROCEDURAL [...] 10/16/2019 JATINDER GUTIÉRREZ MD Ot Z79.899 OTHER USP (CURRENT) DRUG THERAPY 10/16/2019 JATINDER GUTIÉRREZ MD Ot Z82. 62 FAMILY HISTORY OF OSTEOPOROSIS 10/16/2019 JATINDER GUTIÉRREZ MD Ot Z95. 1 PRESENCE OF AORTOCORONARY BYPASS GRAFT 10/30/2019 JATINDER GUTIÉRREZ MD Ot E78. 5 HYPERLIPIDEMIA, UNSPECIFIED 10/30/2019 JATINDER GUTIÉRREZ MD Ot I25. 10 ATHSCL HEART DISEASE OF [place] CORONARY 10/30/2019 JATINDER GUTIÉRREZ MD Ot I87. 2 VENOUS INSUFFICIENCY (CHRONIC) (PERIPHER 10/30/2019 JATINDER GUTIÉRREZ MD Ot K62. 1 RECTAL POLYP 10/30/2019 JATINDER GUTIÉRREZ MD Ot M19. 90 UNSPECIFIED OSTEOARTHRITIS, UNSPECIFIED 10/30/2019 JATINDER GUTIÉRREZ MD Ot Z12. 11 ENCOUNTER FOR SCREENING FOR MALIGNANT NE 10/30/2019 JATINDER GUTIÉRREZ MD Ot Z79.899 OTHER DIRECTOR CHECK (CURRENT) DRUG THERAPY 10/30/2019 JATINDER GUTIÉRREZ MD Ot Z82. 61 FAMILY HISTORY OF ARTHRITIS 10/30/2019 JATINDER GUTIÉRREZ MD Ot Z87.891 PERSONAL HISTORY OF NICOTINE DEPENDENCE 10/30/2019 JATINDER GUTIÉRREZ MD Ot Z95. 1 PRESENCE OF AORTOCORONARY BYPASS GRAFT Procedures Code [place] [address] TB T EST INTRADERMAL 11/12/2013 05870 XRAY KNEE LEFT, 1 OR 2 VIEWS 07/15/2014 54157 XRAY KNEE LEFT, 1 OR 2 VIEWS 07/17/2014 Results There is no data. Encounters ACCT No. Visit Date/Time Discharge Status Pt. Type Provider Facility Loc./Unit Complaint [id number] 08/18/2014 13:23:00 08/18/2014 23:59: 59 CLS Outpatient PATSY ADAMS, COURTNEY Jaramillo [id number] 07/17/2014 16:12:00 07/17/2014 23:59: 59 CLS Outpatient ARMANDO CUEVAS APRN [id number] 07/15/2014 16:59:00 07/15/2014 23:59: 59 CLS Outpatient ARMANDO CUEVAS APRN [id number] 01/28/2014 08:26:00 01/28/2014 23:59: 59 CLS Outpatient ORAL POOL APRN [id number] 11/12/2013 07:54:00 11/12/2013 23:59: 59 CLS Outpatient KIMBERLEE SOLIZ DO [id number] 10/10/2019 07:54:00 10:50:00 DIS Outpatient JATINDER GUTIÉRREZ MD [facility] ENDO SCREENING [id number] 10/06/2019 05:34:00 14:12:00 DIS Outpatient JATINDER GUTIÉRREZ MD [facility] PREOP COLONOSCOPY [id number] 04/09/2018 11:58:00 23:59:59 CLS Outpatient JATINDER GUTIÉRREZ MD [facility] CARD HTN,CHEST PAIN [id number] 06/01/2020 08:05:[address] Inpatient SCARLETT RIVAS MD [facility] ICU UNSTABLE ANGINA [id number] 04/24/2020 07:55:00 04/24/2020 23:59:5 9 CLS Outpatient [facility]
--- NOTE | 2020-06-01 12:48 | History & Physical-Hospitalist ---
History of Present Illness HPI/Chief Complaint Porfirio Bradford is a 55-year-old male with past medical history of hypertension, hyperlipidemia, GERD, coronary artery disease status post CABG, who presented with chest pain. He reports that he fell to the dizzy when he woke up this morning. He says that he developed chest pressure which was constant and nonradiating. He denies any associated shortness of breath. He denies any nausea or vomiting. He denies any diaphoresis. Upon the time of my exam, his symptoms resolved. He denies any fevers or chills. He denies any cough. He denies any abdominal pain, nausea, or vomiting. Source: patient Exam Limitations: no limitations Date Seen 06/01/20 Time Seen by a Provider: 12:48 Attending Physician Scarlett Rivas MD PCP Sunil Ruiz MD Referring Physician BENOIT SANCHEZ MD FACP FAC CCDS Date of Admission Jun 01, 2020 at 08:05 Home Medications & Allergies Home Medications Reviewed patient Home Medication Reconciliation performed by pharmacy medication reconciliations explosive technician and/or nursing. Patients Allergies have been reviewed. Allergies Allergies Coded Allergies No Known Drug Allergies (Tekvyzms53/13/19) Past Kikopbk-Enjgzr-Nprlbt Hx Past Med/Social Hx: Reviewed Nursing Past Med/Soc Hx Patient Social History Alcohol Use: Rarely Uses Recreational Drug Use: No Smoking Status: Former Smoker Former Smoker, Quit: Oct 06, 2008 2nd Hand Smoke Exposure: Yes Recent Foreign Travel: No Contact w/other who traveled: No Recent Hopitalizations: Yes (FEBRUARY 2019-) Recent Infectious Disease Expo: No Immunizations Up To Date Date of Influenza Vaccine: Aug 04, 2019 Seasonal Allergies Seasonal Allergies: No Past Medical History Surgeries: Cardiac Cardiac: Coronary Artery Disease, High Cholesterol, Hypertension Reproductive: No Sexually Transmitted Disease: No HIV/AIDS: No Gastrointestinal: Gastroesophageal Reflux Musculoskeletal: Arthritis Loss of Vision: Denies Hearing Impairment: Denies History of Blood Disorders: No Adverse Reaction to Blood Sanchez: No (N/A) Review of Systems Constitutional: dizziness EENTM: no symptoms reported Respiratory: no symptoms reported Cardiovascular: chest pain Gastrointestinal: no symptoms reported Genitourinary: no symptoms reported Musculoskeletal: no symptoms reported Skin: no symptoms reported Psychiatric/Neurological: No Symptoms Reported Physical Exam Physical Exam Vital Signs Vital Signs - First Documented 06/01/20 07:07 Temp 36.9 Pulse 72 Resp 18 B/P (MAP) 168/92 (117) Pulse Ox 97 O2 Delivery Room Air Capillary Refill : Less Than 3 Seconds Height, Weight, BMI Height: '" Weight: lbs. oz. kg; 36.03 BMI Method:Stated General Appearance: No Apparent Distress, Obese HEENT: PERRL/EOMI, Pharynx Normal Neck: Normal Inspection, Supple Respiratory: Lungs Clear, Normal Breath Sounds, No Respiratory Distress Cardiovascular: Regular Rate, Rhythm, No Edema, No Murmur Gastrointestinal: Normal Bowel Sounds, Non Tender, Soft Extremity: Normal Inspection, Non Tender, No Pedal Edema Neurologic/Psychiatric: Alert, Oriented x3, No Motor/Sensory Deficits, Normal Mood/Affect Skin: Normal Color, Warm/Dry Results Results/Procedures Labs Laboratory Tests 06/01/20 07:15 06/02/20 03:55 Patient resulted labs reviewed. Imaging: Reviewed Imaging Report Assessment/Plan Admission Diagnosis Chest pain Admission Status: Observation Assessment and Plan Chest pain Coronary artery disease Status post CABG Hypertension Hyperlipidemia Initial troponin negative Continue to trend troponin Cardiology consulted, appreciate assistance If troponin trends up, planning for left heart catheterization tomorrow If troponin remains negative, planning for stress test Continue aspirin and beta nikki Obesity Clinically significant, no acute management needs Diagnosis/Problems Diagnosis/Problems (1) Chest pain Status: Acute (2) Coronary artery disease Status: Chronic (3) History of coronary artery bypass graft Status: Chronic (4) Hypertension Status: Chronic Qualifiers: Hypertension type: essential hypertension Qualified Codes: I10 - Essential (primary) hypertension (5) Hyperlipidemia Status: Chronic (6) Obesity Status: Chronic Qualifiers: Obesity type: due to excess calories Serious obesity comorbidity presence: with serious comorbidity Body mass index: BMI 36.0-36.9 Clinical Quality Measures DVT/VTE Risk/Contraindication: Risk Factor Score Per Nursin RFS Level Per Nursing on Admit: 3=High SCARLETT RIVAS MD Jun 01, 2020 12:48
--- NOTE | 2020-06-01 13:00 | NUR ---
SPOKE WITH [facility] REGARDING STRESS TEST TOMORROW. ECHO NOTIFIED OF ORDER ALSO. PT DENIES COMPLAINTS AT THIS TIME. REPEAT TROPONIN PENDING AT THIS TIME.
[2020-06-01] MEDS: CATHETER FLUSH 10 ML SYR IV SCH ×2 (15:02→20:29)
[2020-06-01] MEDS ORDERED: PATIENT MAY USE OWN MEDS, ALL MC SCH (19:00)
[2020-06-01] MEDS: VITAMIN D3 25 MCG (1,000 UNITS) TABLET PO SCH (20:28)
[2020-06-01] MEDS: meTOprolol TARTRATE 25 MG (LOPRESSOR) TABLET PO SCH (20:29)
[2020-06-01] MEDS ORDERED: NIACINAMIDE PO SCH (21:00)
[2020-06-02 00:05] VITALS: BP 126/70
[2020-06-02 04:08] LABS: BASOPHILS % (AUTO) 0 % (0-10); EOSINOPHILS # (AUTO) 0.2 10^3/uL (0.0-0.3); EOSINOPHILS % (AUTO) 3 % (0-10); HEMATOCRIT 42 % (40-54); LYMPHOCYTES % (AUTO) 34 % (12-44); MEAN CORPUSCULAR HEMOGLOBIN 29 PG (25-34); MEAN CORPUSCULAR HGB CONC 34 G/DL (32-36); MEAN CORPUSCULAR VOLUME 87 FL (80-99); MEAN PLATELET VOLUME 9.7 FL (7.4-10.4); MONOCYTES # (AUTO) 0.6 X 10^3 (0.0-1.0); MONOCYTES % (AUTO) 11 % (0-12); NEUTROPHILS # (AUTO) 3.1 X 10^3 (1.8-7.8); NEUTROPHILS % (AUTO) 52 % (42-75); PLATELET COUNT 183 10^3/uL (130-400); RED CELL DISTRIBUTION WIDTH 13.5 % (10.0-14.5); WHITE BLOOD COUNT 5.8 10^3/uL (4.3-11.0)
[2020-06-02 04:23] LABS: ALANINE AMINOTRANSFERASE 20 U/L (0-55); ALBUMIN 3.7 GM/DL (3.2-4.5); ALKALINE PHOSPHATASE 94 U/L (40-136); BILIRUBIN,TOTAL 0.7 MG/DL (0.1-1.0); BUN/CREATININE RATIO 18; CALCIUM 9.1 MG/DL (8.5-10.1); CARBON DIOXIDE 20 MMOL/L (21-32); CHLORIDE 108 MMOL/L (98-107); CHOLESTEROL 122 MG/DL (< 200); CREATININE SERUM 0.83 MG/DL (0.60-1.30); GFR ESTIMATED > 60; GLUCOSE 104 MG/DL (70-105); HDL CHOLESTEROL 22 MG/DL (40-60); POTASSIUM 4.3 MMOL/L (3.6-5.0); SODIUM 141 MMOL/L (135-145); TOTAL PROTEIN 6.5 GM/DL (6.4-8.2); TRIGLYCERIDES 105 MG/DL (<150); VLDL CHOLESTEROL 21 MG/DL (5-40)
[2020-06-02] MEDS: CATHETER FLUSH 10 ML SYR IV SCH ×2 (04:27→15:16)
[2020-06-02 04:35] VITALS: BP 132/78
--- NOTE | 2020-06-02 07:12 | NUR ---
PT TO STRESS TEST AT THIS TIME.
[2020-06-02] MEDS ORDERED: REGADENOSON 0.4 MG/5 ML SYR (LEXISCAN) IV ONE (08:00)
[2020-06-02] MEDS ORDERED: CLOPIDOGREL 75 MG (PLAVIX) TABLET PO SCH (09:00)
[2020-06-02] MEDS ORDERED: PANTOPRAZOLE 40 MG (PROTONIX) TAB PO SCH (09:00)
[2020-06-02] MEDS ORDERED: NON-FORMULARY MEDICATION 1 EA EA (Lisinopril 2.5 MG) PO SCH (09:00)
[2020-06-02] MEDS ORDERED: ASPIRIN E.C. 81 MG (ECOTRIN) TAB PO SCH (09:00)
[2020-06-02] MEDS ORDERED: lisINopril 5 MG (PRINIVIL) TABLET PO SCH (09:00)
--- NOTE | 2020-06-02 09:03 | Progress Note - Cardiology ---
Cardiology SOAP Progress Note Subjective: No further c/o chest discomfort. No c/o dyspnea, palpitations, weakness, syncope or near syncope. Objective: I&O/Vital Signs 06/02/20 06/02/20 06/02/20 06/02/20 00:05 00:05 01:00 04:35 Temp 36.5 Pulse 70 60 Resp 18 B/P (MAP) 126/70 (88) Pulse Ox 95 96 95 O2 Delivery Room Air Room Air Room Air 06/02/20 04:35 Temp 36.8 Pulse 62 Resp 16 B/P (MAP) 132/78 (96) Pulse Ox 95 O2 Delivery Room Air 06/02/20 00:00 Intake Total 945 ml Output Total 950 ml Balance -5 ml Constitutional: AAO x 3, well-developed, well-nourished Respiratory: No accessory muscle use, No respiratory distress; chest expansion is symmetric, chest is bilaterally symmetric, lungs clear to auscultation Cardiovascular: regular rate-rhythm; No JVD; S1 and S2 Gastrointestional: No tender; soft, round, audible bowel sounds Extremities: no lower extremity edema bilateral Neurologic/Psychiatric: grossly intact (moves all extremities) Skin: No rash on exposed areas, No ulcerations on exposed areas Results/Procedures: Labs Laboratory Tests 06/01/20 11:58: Troponin I < 0.028 06/01/20 19:00: Troponin I < 0.028 06/02/20 03:55: White Blood Count 5.8, Red Blood Count 4.77, Hemoglobin 14.0, Hematocrit 42, Mean Corpuscular Volume 87, Mean Corpuscular Hemoglobin 29, Mean Corpuscular Hemoglobin Concent 34, Red Cell Distribution Width 13.5, Platelet Count 183, Mean Platelet Volume 9.7, Neutrophils (%) (Auto) 52, Lymphocytes (%) (Auto) 34, Monocytes (%) (Auto) 11, Eosinophils (%) (Auto) 3, Basophils (%) (Auto) 0, Neutrophils # (Auto) 3.1, Lymphocytes # (Auto) 2.0, Monocytes # (Auto) 0.6, Eosinophils # (Auto) 0.2, Basophils # (Auto) 0.0, Sodium Level 141, Potassium Level 4.3, Chloride Level 108H, Carbon Dioxide Level 20L, Anion Gap 13, Blood Urea Nitrogen 15, Creatinine 0.83, Estimat Glomerular Filtration Rate > 60, BUN/Creatinine Ratio 18, Glucose Level 104, Calcium Level 9.1, Corrected Calcium 9.3, Total Bilirubin 0.7, Aspartate Amino Transf (AST/SGOT) 21, Alanine Aminotransferase (ALT/SGPT) 20, Alkaline Phosphatase 94, Total Protein 6.5, Albumin 3.7, Triglycerides Level 105, Cholesterol Level 122, LDL Cholesterol Direct 86, VLDL Cholesterol 21, HDL Cholesterol 22L A/P: Assessment: Chest pain of undetermined etiology - no evidence of ACS Coronary artery disease with a history of coronary artery bypass surgery in March [address] Marcos at [facility] in [place], [place]. Last catheterization was in August 2008 and it showed widely patent graft, including left internal mammary to first diagonal, radial artery to distal left anterior descending, saphenous vein to first obtuse marginal, saphenous vein to right coronary. There was approximately 50% stenosis at the site of insertion of the vein graft to the right coronary artery. Last myocardial perfusion imaging was by Dr. Emanuel on 01/12/10. The patient has small basal inferior infarction without ischemia, basal inferior hypokinesis,and left ventricular ejection fraction of 51%. Ischemic cardiomyopathy. Ejection fraction prior to coronary artery bypass surgery was 35 to 40%. Echocardiogram of June 01, 2020 showed LVEF 45-50% Hyperlipidemia being treated with statins and Niacin and being followed by Dr. Ruiz. Former smoker of cigarettes. Plan: No evidence of ACS - s/p MPI - pending Continue ASA, statin and BB Monitor labs Advised to continue to refrain from tobacco use NEIL WU Jun 02, 2020 09:03
[2020-06-02 09:30] VITALS: BP 153/90
--- NOTE | 2020-06-02 09:37 | NUR ---
PT BACK TO ROOM FROM STRESS TEST WITH IV INTACT TO LEFT AC. PT PLACED ON ALL MONITORS, VSS. WILL CONTINUE TO MONITOR.
[2020-06-02] MEDS: VITAMIN D3 25 MCG (1,000 UNITS) TABLET PO SCH (09:42)
[2020-06-02] MEDS: meTOprolol TARTRATE 25 MG (LOPRESSOR) TABLET PO SCH (09:47)
[2020-06-02 11:38] VITALS: BP 124/79
--- NOTE | 2020-06-02 14:23 | Discharge Summary ---
Discharge Summary Hospital Course Was the Problem List Reviewed?: Yes Problems/Dx: (1) Chest pain Status: Acute (2) Coronary artery disease Status: Chronic (3) History of coronary artery bypass graft Status: Chronic (4) Hypertension Status: Chronic Qualifiers: Qualified Codes: I10 - Essential (primary) hypertension (5) Hyperlipidemia Status: Chronic (6) Obesity Status: Chronic Qualifiers: Hospital Course Date of Admission: Jun 01, 2020 at 08:05 Admission Diagnosis : Chest pain Family Physician/Provider: Jatinder Gutiérrez MD Date of Discharge: 06/02/20 Discharge Diagnosis: Chest pain Hospital Course: Porfirio Bradford is a 55-year-old male who presented with chest pain. His chest pain resolved quickly. Cardiology was consulted and assisted with his care. He has a history of coronary artery disease and a CABG. His troponin was trended and remained normal. He underwent a react stress test which was normal. He had an echocardiogram which showed a mildly reduced ejection fraction of 45-50 percent which correlates with his history of ischemic cardiomyopathy. There were no regional wall motion abnormalities noted. He was discharged home in stable condition. He should follow-up with his primary care physician in 1-2 weeks. He should follow-up with cardiology as scheduled. Labs and Pending Lab Test: Laboratory Tests 06/01/20 19:00: Troponin I < 0.028 06/02/20 03:55: White Blood Count 5.8, Red Blood Count 4.77, Hemoglobin 14.0, Hematocrit 42, Mean Corpuscular Volume 87, Mean Corpuscular Hemoglobin 29, Mean Corpuscular Hemoglobin Concent 34, Red Cell Distribution Width 13.5, Platelet Count 183, Mean Platelet Volume 9.7, Neutrophils (%) (Auto) 52, Lymphocytes (%) (Auto) 34, Monocytes (%) (Auto) 11, Eosinophils (%) (Auto) 3, Basophils (%) (Auto) 0, Neutrophils # (Auto) 3.1, Lymphocytes # (Auto) 2.0, Monocytes # (Auto) 0.6, Eosinophils # (Auto) 0.2, Basophils # (Auto) 0.0, Sodium Level 141, Potassium Level 4.3, Chloride Level 108H, Carbon Dioxide Level 20L, Anion Gap 13, Blood Urea Nitrogen 15, Creatinine 0.83, Estimat Glomerular Filtration Rate > 60, BUN/Creatinine Ratio 18, Glucose Level 104, Calcium Level 9.1, Corrected Calcium 9.3, Total Bilirubin 0.7, Aspartate Amino Transf (AST/SGOT) 21, Alanine Aminotransferase (ALT/SGPT) 20, Alkaline Phosphatase 94, Total Protein 6.5, Albumin 3.7, Triglycerides Level 105, Cholesterol Level 122, LDL Cholesterol Direct 86, VLDL Cholesterol 21, HDL Cholesterol 22L Home Meds Active Reported Atorvastatin Calcium 80 Mg Tablet 80 Mg PO HS Metoprolol Tartrate 25 Mg Tablet 25 Mg PO BID Omeprazole 20 Mg Tablet.dr 20 Mg PO DAILY PRN Aspirin EC (Aspirin) 81 Mg Tablet.dr 81 Mg PO HS Vitamin D3 (Cholecalciferol (Vitamin D3)) 25 Mcg Tablet 25 Mcg PO BID Niacin (Niacinamide) 500 Mg Tablet 1,000 Mg PO HS TAKES 2 (500MG) TABS Lisinopril 2.5 Mg Tablet 2.5 Mg PO DAILY Assessment/Pt Instructions Take medications as prescribed. Follow up with cardiology as scheduled. Follow-up with your primary care provider in 1-2 weeks. Return with worsening chest pain or shortness of breath. Discharge Planning: <30 minutes discharge planning Discharge Instructions Discharge Diet: Low Sodium Diet Activity as Tolerated: Yes Pneumonia Vaccine Order Indica: Yes Consultations Cardiology Discharge Physical Examination Vital Signs Vital Signs Date Time Temp Pulse Resp B/P (MAP) Pulse Ox O2 Delivery O2 Flow Rate FiO2 06/02/20 11:57 Room Air 06/02/20 11:38 36.8 71 16 124/79 (94) 97 General Appearance: No Apparent Distress, Obese Respiratory: Lungs Clear, Normal Breath Sounds, No Respiratory Distress Cardiovascular: Regular Rate, Rhythm, No Edema, No Murmur Gastrointestinal: Normal Bowel Sounds, Non Tender, Soft Extremity: Normal Inspection, Non Tender, No Pedal Edema Skin: Normal Color, Warm/Dry Neurologic/Psychiatric: Alert, Oriented x3, No Motor/Sensory Deficits, Normal Mood/Affect Allergies: Coded Allergies: No Known Drug Allergies (Verified , 10/10/19) Copy Copies To 1: JATINDER GUTIÉRREZ MD Discharge Summary Date of Admission Jun 01, 2020 at 08:05 Date of Discharge Discharge Date: Jun 02, 2020 Discharge Time: 14:22 Admission Diagnosis Chest pain Consults/Procedures Consulations Cardiology Procedures Cardiac stress test Discharge Diagnosis Chest pain (1) Chest pain Status: Acute (2) Coronary artery disease Status: Chronic (3) History of coronary artery bypass graft Status: Chronic (4) Hypertension Status: Chronic Qualifiers: Qualified Codes: I10 - Essential (primary) hypertension (5) Hyperlipidemia Status: Chronic (6) Obesity Status: Chronic Qualifiers: Clinical Quality Measures DVT/VTE Risk/Contraindication: Risk Factor Score Per Nursin RFS Level Per Nursing on Admit: 3=High SCARLETT RIVAS MD Jun 02, 2020 14:22
[2020-06-02 15:22] VITALS: BP 135/90
[2020-06-02] MEDS ORDERED: NIACIN 500 MG TABLET PO SCH (17:00)
--- NOTE | 2020-06-02 17:16 | CARDIAC CATHETERIZATION ---
DATE OF SERVICE: 06/02/2020 RESTING AND POST REGADENOSON TECHNETIUM-99M TETROFOSMIN SPECT CT IMAGING ORDERING PHYSICIAN: Dr. Villarreal. PRIMARY CARE PHYSICIAN: Dr. Ruiz. ATTENDING PHYSICIAN: Dr. Olson. CLINICAL DIAGNOSIS: Coronary artery disease, chest pain. Baseline images were carried out after injection of 10.59 mCi of technetium-99m Tetrofosmin. This was followed by 0.4 mg Regadenoson and 31.2 mCi of technetium-99m Tetrofosmin for stress imaging. The electrocardiogram showed sinus rhythm at baseline. It did not change significantly with the Regadenoson infusion. Occasional isolated premature ventricular contraction was seen. The patient tolerated the procedure well. Review of images at rest and following stress indicates a somewhat patchy tracer uptake. There appears to be a small apical perfusion defect, which is mostly fixed. Gated images show mild to moderate global hypokinesis of the left ventricle. Left ventricular ejection fraction is calculated to be 47%. Left ventricular end diastolic volume is 135 mL. TID is absent (1.05). CONCLUSIONS: 1. This study is suggestive of a small apical infarction with a small amount of shanita-infarct ischemia. 2. Mild global hypokinesis of left ventricle with a calculated ejection fraction of 47%. 3. Mild to moderate cardiomegaly. Job ID: [id number] DocumentID: [id number] Dictated Date: 06/02/2020 13:04:17 Staff Electrical Engineer Date: 06/02/2020 13:42:10 Dictated By: BENOIT VILLARREAL MD, MA, FACP, FACC,
== END 2020-06-02 14:05 | disposition home or self-care (01) ==
LOC: EDUNIT# 07:05 → ER 07:06 → ICU 08:05 → UNDOADMOB 08:05 → ICU 08:20 → UNDODISOB 06-02 15:22
PROVIDERS: ADMIT Internal Medicine; ATTEND Internal Medicine
DX: I25.110 Atherosclerotic heart disease of native coronary artery with unstable angina pectoris (principal); E78.00 Pure hypercholesterolemia, unspecified; K21.9 Gastro-esophageal reflux disease without esophagitis; M19.90 Unspecified osteoarthritis, unspecified site; E78.5 Hyperlipidemia, unspecified; I36.1 Nonrheumatic tricuspid (valve) insufficiency; I11.9 Hypertensive heart disease without heart failure; E66.9 Obesity, unspecified; Z68.36 Body mass index [BMI] 36.0-36.9, adult; Z79.82 Long term (current) use of aspirin; Z79.899 Other long term (current) drug therapy; Z87.891 Personal history of nicotine dependence; Z95.1 Presence of aortocoronary bypass graft
CPT/HCPCS: 71045; 78452; 80053 ×2; 80061; 83690; 83735; 83874; 84484; 85025 ×2; 85610; 85730; 93005 ×2; 93017; 93041; 93306; 99284; A9502; G0378; 36415

== ENCOUNTER → 2021-10-04 | Outpatient (CLI) | payer BC ==
[~2021-10-04] MED LIST changes: +ASPI-1238 PO; +ATOR80TA76 PO; +CATHETER FLUSH 10 ML SYR IV PRN; +CHOL10004 PO; +HOLD METFORMIN - RECEIVED CONTRAST 20 ML VIAL IV SCH; +IOHEXOL 350 MG/ML 100 ML (OMNIPAQUE 350) VIAL IV ONE; -LISI2.5T PO; +LISI2.5T13 PO; +METO-333 PO; +NS 100 ML (IVPB) BAG IV ONE; +OMEP20TA7 PO; -OMEP40CA27 PO; +OMEP40CA6 PO
[2021-10-04 07:39] LABS: POTASSIUM 4.3 MMOL/L (3.6-5.0)
[2021-10-04 07:41] LABS: CALCIUM 10.1 MG/DL (8.5-10.1)
[2021-10-04 07:42] LABS: TOTAL PROTEIN 7.4 GM/DL (6.4-8.2)
[2021-10-04 07:44] LABS: BILIRUBIN,TOTAL 0.8 MG/DL (0.1-1.0)
[2021-10-04 07:46] LABS: CREATININE SERUM 0.98 MG/DL (0.60-1.30)
--- NOTE | 2021-10-04 09:22 | Diagnostic Imaging Report ---
PROCEDURE: CT angiography of the head and CT angiography of the neck with and without contrast. TECHNIQUE: Contiguous noncontrast images were obtained from the skull base through the vertex. After intravenous contrast administration, helical CT angiography of the neck was performed. Source data was reformatted into 3D MIP projections. Delayed post contrast acquisition was also obtained. Auto Exposure Controls were utilized during the CT exam to meet ALARA standards for radiation dose reduction. INDICATION: Bilateral carotid artery stenosis. COMPARISON: None. FINDINGS: The noncontrast head CT demonstrates no evidence of an acute territorial infarction. No intracranial hemorrhage, mass effect, hydrocephalus, or extra-axial fluid collections. No abnormal intracranial enhancement on post contrast imaging. CTA demonstrates a conventional aortic arch. Scattered moderate atherosclerotic calcifications. There is 70-89% narrowing of the right internal carotid artery origin. There is less than 50% narrowing of the left internal carotid artery origin. The basilar, bilateral vertebral, common carotid, anterior cerebral, middle cerebral, and posterior cerebral arteries demonstrate no high-grade narrowing, aneurysm, or dissection. The dural venous sinuses are normally opacified. Moderate spondylotic changes in the cervical spine. No acute osseous findings. Lung apices are clear. Sternotomy. IMPRESSION: 1. High-grade narrowing of the right internal carotid artery origin of 70-89%. 2. Less than 50% narrowing of the left internal carotid artery origin. 3. No acute intracranial CT findings. Dictated by: Dictated on workstation # [id number]
== END ==
LOC: RAD 08:45
PROVIDERS: ATTEND Nurse Practitioner Family
DX: I65.23 Occlusion and stenosis of bilateral carotid arteries (principal); E78.2 Mixed hyperlipidemia; I25.10 Atherosclerotic heart disease of native coronary artery without angina pectoris
CPT/HCPCS: 36415; 70496; 70498; 80053; 80061

== ENCOUNTER → 2022-01-13 | Outpatient (CLI) | payer BC ==
[~2022-01-13] MED LIST changes: -CATHETER FLUSH 10 ML SYR IV PRN; -HOLD METFORMIN - RECEIVED CONTRAST 20 ML VIAL IV SCH; -IOHEXOL 350 MG/ML 100 ML (OMNIPAQUE 350) VIAL IV ONE; -NS 100 ML (IVPB) BAG IV ONE
--- NOTE | 2022-01-13 08:41 | Diagnostic Imaging Report ---
PROCEDURE: US left lower extremity venous. TECHNIQUE: Multiple real-time grayscale images were obtained over the left lower extremity in various projections. Additional duplex Doppler and color Doppler images were also obtained. INDICATION: Left lower extremity extremity pain and swelling. Patient underwent recent knee surgery. There is no evidence of left lower extremity DVT. Left lower extremity deep venous system shows normal compressibility with normal response to augmentation and Valsalva. No fluid collection or mass is detected. IMPRESSION: No evidence of left lower extremity DVT. Dictated by: Dictated on workstation # [id number]
== END ==
LOC: RAD 08:00
PROVIDERS: ATTEND Internal Medicine
DX: M79.662 Pain in left lower leg (principal); M79.89 Other specified soft tissue disorders; Z96.651 Presence of right artificial knee joint

== ENCOUNTER 2022-01-25 09:28 | Outpatient (RCR) | payer BC | END 2022-01-26 | disposition home or self-care (01) | PROVIDERS: ATTEND Orthopaedic Surgery | DX: Z47.1 Aftercare following joint replacement surgery (principal); Z96.652 Presence of left artificial knee joint ==

== ENCOUNTER 2022-02-03 08:42 | Outpatient (RCR) | payer BC ==
[~2022-02-03 08:42] MED LIST changes: +OMEP20TA56 PO; -OMEP20TA7 PO
== END 2022-02-03 09:38 | disposition home or self-care (01) ==
PROVIDERS: ATTEND Orthopaedic Surgery
DX: Z47.1 Aftercare following joint replacement surgery (principal); I11.0 Hypertensive heart disease with heart failure; I50.9 Heart failure, unspecified; Z96.652 Presence of left artificial knee joint

== ENCOUNTER → 2022-07-28 | Outpatient (RCR) | payer BC | END | disposition home or self-care (01) | PROVIDERS: ATTEND Orthopaedic Surgery | DX: Z47.1 Aftercare following joint replacement surgery (principal); I10 Essential (primary) hypertension; Z96.651 Presence of right artificial knee joint ==

== ENCOUNTER 2022-08-02 15:30 | Outpatient (RCR) | payer BC | END 2022-08-28 | disposition home or self-care (01) | PROVIDERS: ATTEND Orthopaedic Surgery | DX: Z47.1 Aftercare following joint replacement surgery (principal); I10 Essential (primary) hypertension; Z96.651 Presence of right artificial knee joint ==

== ENCOUNTER → 2022-12-13 | Outpatient (CLI) | payer BC | LOC: CARD 07:20 | PROVIDERS: ATTEND Internal Medicine Cardiovascular Disease | DX: I25.5 Ischemic cardiomyopathy (principal) | CPT/HCPCS: 93306 ==

== ENCOUNTER → 2023-02-20 | Outpatient (CLI) | payer BC ==
[~2023-02-20] MED LIST changes: +CATHETER FLUSH 10 ML SYR IVP PRN; +REGADENOSON 0.4 MG/5 ML SYR (LEXISCAN) IV ONE
[2023-02-20 09:17] VITALS: BP 142/88
--- NOTE | 2023-02-20 18:04 | STRESS TEST ---
DATE OF SERVICE: 02/20/2023 RESTING AND POST REGADENOSON TECHNETIUM-99M TETROFOSMIN SPECT CT IMAGING ORDERING PHYSICIAN: Chelsea Hoffman APRN. PRIMARY PHYSICIAN: Dr. Ruiz. CLINICAL DIAGNOSIS: Coronary artery disease. Baseline images were carried out after injection of 10.96 mCi technetium-99m tetrofosmin. This was followed by 0.4 mg regadenoson and 31.2 mCi of technetium-99m tetrofosmin for stress imaging. The electrocardiogram showed sinus rhythm at baseline. It did not change significantly with the regadenoson infusion. The patient tolerated the procedure well. Review of images at rest and following stress indicates a partially transient basal inferior perfusion defect. Gated images show well preserved global left ventricular systolic function. There does not appear to be significant hypokinesis. Left ventricular ejection fraction is calculated to be 50%. Left ventricular end-diastolic volume is 126 mL. CONCLUSIONS: 1. The study is indicative of a small to moderate amount of basal inferior ischemia. 2. Well preserved global left ventricular systolic function with ejection fraction of 50% without significant regional wall motion abnormalities. Job ID: [id number] DocumentID: [id number] Dictated Date: 02/20/2023 14:07:33 Production Tester Date: 02/20/2023 18:02:00 Dictated By: BENOIT SANCHEZ MD; ZA; FACP; FACC;
== END ==
LOC: CARD 07:33
PROVIDERS: ATTEND Nurse Practitioner Family
DX: I25.10 Atherosclerotic heart disease of native coronary artery without angina pectoris (principal)
CPT/HCPCS: 78452; 93017; A9502